=== PATIENT | male | born 2005 | race Caucasian/White ===

== ENCOUNTER 2025-11-09 09:10 | Emergency (ER) | payer OTHER ==
[~2025-11-09] VITALS: Ht 185.4 cm; Wt 122.5 kg
[~2025-11-09 09:10] MED LIST: AMOXICILLIN500 M3 PO; AUGMENTIN 875-875 MG PO
[2025-11-09] MEDS ORDERED: BACITRACIN28.4 GM T (11:25)
== END 2025-11-09 11:46 | disposition home or self-care (01) ==
LOC: ED 09:10
DX: S90.511A Abrasion, right ankle, initial encounter (principal); W22.8XXA Striking against or struck by other objects, initial encounter; Y93.89 Activity, other specified; Y92.89 Other specified places as the place of occurrence of the external cause; Y99.8 Other external cause status